=== PATIENT | female | born 1980 | race Caucasian/White ===

== ENCOUNTER 2017-06-16 10:10 | Emergency (ER) | payer MEDICAID ==
[~2017-06-16] VITALS: Ht 157.5 cm; Wt 89.6 kg
[2017-06-16 10:16] VITALS: BP 135/90
== END 2017-06-16 11:14 | disposition home or self-care (01) ==
LOC: ED 11:00
DX: J20.9 Acute bronchitis, unspecified (principal); J00 Acute nasopharyngitis [common cold]; J02.9 Acute pharyngitis, unspecified
CPT/HCPCS: 93005; 99283

== ENCOUNTER 2017-08-16 07:29 | Emergency (ER) | payer MEDICAID ==
[~2017-08-16] VITALS: Ht 157.5 cm; Wt 84.0 kg
[2017-08-16 08:12] VITALS: BP 112/72
== END 2017-08-16 08:14 | disposition home or self-care (01) ==
LOC: ED 08:00
DX: S06.0X9A Concussion with loss of consciousness of unspecified duration, initial encounter (principal); F41.9 Anxiety disorder, unspecified; W01.0XXA Fall on same level from slipping, tripping and stumbling without subsequent striking against object, initial encounter; Y93.89 Activity, other specified; Y99.8 Other external cause status; Y92.89 Other specified places as the place of occurrence of the external cause
CPT/HCPCS: 99283

== ENCOUNTER 2017-08-27 14:04 | Emergency (ER) | payer MEDICAID ==
[~2017-08-27] VITALS: Ht 157.5 cm; Wt 82.2 kg
[2017-08-27 15:45] LABS: MICROSCOPIC INDICATED
[2017-08-27 15:46] LABS: CULTURE INDICATED? YES
[2017-08-27 16:32] VITALS: BP 108/78
== END 2017-08-27 16:38 | disposition home or self-care (01) ==
LOC: ED 15:41
DX: N39.0 Urinary tract infection, site not specified (principal)
CPT/HCPCS: 81001; 81025; 87086; 99284

== ENCOUNTER 2017-11-12 08:49 | Emergency (ER) | payer SELFPAY ==
[~2017-11-12] VITALS: Ht 157.5 cm; Wt 76.3 kg
[2017-11-12 08:56] VITALS: BP 110/72
[2017-11-12 10:05] LABS: BASOPHILS # (AUTO) 0.07 x10^3/uL (0-0.1); BASOPHILS % (AUTO) 1 % (0-1); EOSINOPHILS # (AUTO) 0.07 x10^3/uL (0-0.4); EOSINOPHILS % (AUTO) 1 % (1-7); LYMPHOCYTES # (AUTO) 2.03 x10^3/uL (1-3.4); LYMPHOCYTES % (AUTO) 30 % (22-44); MD NO; MEAN CORPUSCULAR HEMOGLOBIN 32.4 pg (27.0-34.8); MEAN CORPUSCULAR HGB CONC 33.4 g/dL (32.4-35.8); MEAN PLATELET VOLUME 8.8 fL (7.4-10.4); MONOCYTES % (AUTO) 7 % (2-9); NEUTROPHILS # (AUTO) 4.22 x10^3/uL (1.8-6.8); NEUTROPHILS % (AUTO) 61 % (42-75); PLATELET COUNT 279 x10^3/uL (130-400); RED BLOOD COUNT 4.11 x10^6/uL (3.82-5.3); RED CELL DISTRIBUTION WIDTH 14.7 % (9.6-15.2)
[2017-11-12 10:17] LABS: ALANINE AMINOTRANSFERASE 32 U/L (12-78); ALBUMIN 3.1 g/dL (3.4-5.0); ANION GAP 7 mmol/L (5-15); CALCIUM 8.5 mg/dL (8.5-10.1); CHLORIDE 110 mmol/L (98-107); CREATININE 1.02 mg/dL (0.55-1.02)
[2017-11-12 10:19] LABS: ALKALINE PHOSPHATASE 47 U/L (45-117); BILIRUBIN,TOTAL 0.4 mg/dL (0.2-1.0); TOTAL PROTEIN 6.6 g/dL (6.4-8.2)
[2017-11-12 11:05] LABS: CULTURE INDICATED? YES; MICROSCOPIC INDICATED
[2017-11-12 11:19] LABS: HCG UR SG 1.025 (1.003-1.030)
== END 2017-11-12 12:35 | disposition home or self-care (01) ==
LOC: ED 09:01
DX: M79.672 Pain in left foot (principal); M79.671 Pain in right foot; H81.10 Benign paroxysmal vertigo, unspecified ear; N39.0 Urinary tract infection, site not specified; R53.1 Weakness
CPT/HCPCS: 36415; 80053; 81001; 81025; 85025; 87086; 93005; 99285

== ENCOUNTER 2017-11-13 07:39 | Emergency (ER) | payer SELFPAY ==
[~2017-11-13] VITALS: Ht 157.5 cm; Wt 85.4 kg
[2017-11-13 07:45] VITALS: BP 105/63
[2017-11-13 08:19] LABS: BASOPHILS # (AUTO) 0.07 x10^3/uL (0-0.1); BASOPHILS % (AUTO) 1 % (0-1); EOSINOPHILS # (AUTO) 0.09 x10^3/uL (0-0.4); EOSINOPHILS % (AUTO) 1 % (1-7); LYMPHOCYTES # (AUTO) 2.11 x10^3/uL (1-3.4); LYMPHOCYTES % (AUTO) 30 % (22-44); MD NO; MEAN CORPUSCULAR HEMOGLOBIN 32.4 pg (27.0-34.8); MEAN CORPUSCULAR HGB CONC 33.1 g/dL (32.4-35.8); MEAN CORPUSCULAR VOLUME 97.9 fL (80-100); MEAN PLATELET VOLUME 8.8 fL (7.4-10.4); MONOCYTES # (AUTO) 0.54 x10^3/uL (0.2-0.8); MONOCYTES % (AUTO) 8 % (2-9); NEUTROPHILS # (AUTO) 4.33 x10^3/uL (1.8-6.8); NEUTROPHILS % (AUTO) 61 % (42-75); PLATELET COUNT 266 x10^3/uL (130-400); RED BLOOD COUNT 4.19 x10^6/uL (3.82-5.3); RED CELL DISTRIBUTION WIDTH 14.6 % (9.6-15.2)
[2017-11-13] MEDS ORDERED: CEFTRIAXONE 1,000 MG IM ONE (08:30)
[2017-11-13 08:32] LABS: ALBUMIN 3.3 g/dL (3.4-5.0); ANION GAP 8 mmol/L (5-15); CALCIUM 8.6 mg/dL (8.5-10.1); CHLORIDE 111 mmol/L (98-107); CREATININE 1.11 mg/dL (0.55-1.02)
[2017-11-13 08:35] LABS: INTERNATIONAL NORMALIZED RATIO 1.09 (0.93-1.1); PROTHROMBIN TIME 11.3 Seconds (9.6-11.5)
[2017-11-13] MEDS ORDERED: CEFTRIAXONE 1,000 MG ONE (08:45)
== END 2017-11-13 10:14 | disposition home or self-care (01) ==
LOC: ED 09:12
DX: N30.90 Cystitis, unspecified without hematuria (principal); F41.1 Generalized anxiety disorder; R53.1 Weakness; Z72.9 Problem related to lifestyle, unspecified; Z75.9 Unspecified problem related to medical facilities and other health care
CPT/HCPCS: 36415; 70450; 71045; 80048; 82040; 85025; 85610; 93005; 96372; 99285; J0696

== ENCOUNTER 2017-12-04 12:58 | Emergency (ER) | payer MEDICAID ==
[~2017-12-04] VITALS: Ht 157.5 cm; Wt 80.6 kg
[2017-12-04 13:03] VITALS: BP 120/66
[2017-12-04] MEDS ORDERED: DIAZEPAM 5 MG TABLET ONE (13:30)
[2017-12-04] MEDS ORDERED: DIAZEPAM 5 MG TABLET PO ONE (13:30)
[2017-12-04] MEDS ORDERED: HYDROcodone/APAP 5/325 TABLET ONE (13:30)
[2017-12-04] MEDS ORDERED: OXYcodone/APAP 5/325MG TABLET PO ONE (13:30)
[2017-12-04] MEDS ORDERED: HYDROcodone/APAP 5/325 TABLET PO ONE (14:00)
== END 2017-12-04 15:09 | disposition home or self-care (01) ==
LOC: ED 14:25
DX: M54.41 Lumbago with sciatica, right side (principal)
CPT/HCPCS: 93005; 99284; J7512

== ENCOUNTER 2017-12-16 06:33 | Emergency (ER) | payer MEDICAID ==
[~2017-12-16] VITALS: Ht 165.1 cm; Wt 80.0 kg
[2017-12-16 06:35] VITALS: BP 117/73
== END 2017-12-16 08:57 | disposition home or self-care (01) ==
LOC: ED 08:51
DX: S50.11XA Contusion of right forearm, initial encounter (principal); W01.198A Fall on same level from slipping, tripping and stumbling with subsequent striking against other object, initial encounter; Y93.89 Activity, other specified; Y92.098 Other place in other non-institutional residence as the place of occurrence of the external cause; Y99.8 Other external cause status
CPT/HCPCS: 99284

== ENCOUNTER 2017-12-30 06:34 | Emergency (ER) | payer MEDICAID ==
[~2017-12-30] VITALS: Ht 157.5 cm; Wt 81.7 kg
[2017-12-30 07:34] VITALS: BP 107/70
== END 2017-12-30 08:44 | disposition home or self-care (01) ==
LOC: ED 06:53
DX: J02.8 Acute pharyngitis due to other specified organisms (principal); B97.89 Other viral agents as the cause of diseases classified elsewhere; J06.9 Acute upper respiratory infection, unspecified
CPT/HCPCS: 71046; 87081; 87880; 93005; 99285

== ENCOUNTER 2018-02-24 20:04 | Emergency (ER) | payer MEDICAID ==
[~2018-02-24] VITALS: Ht 157.5 cm; Wt 79.7 kg
[2018-02-24 20:10] VITALS: BP 117/73
[2018-02-24] MEDS ORDERED: SODIUM CHLORIDE FLUSH 10ML SYR IVF ONE (21:00)
[2018-02-24 21:24] LABS: BASOPHILS # (AUTO) 0.12 x10^3/uL (0-0.1); BASOPHILS % (AUTO) 1 % (0-1); EOSINOPHILS # (AUTO) 0.15 x10^3/uL (0-0.4); EOSINOPHILS % (AUTO) 2 % (1-7); LYMPHOCYTES # (AUTO) 3.13 x10^3/uL (1-3.4); LYMPHOCYTES % (AUTO) 34 % (22-44); MD NO; MEAN CORPUSCULAR HEMOGLOBIN 32.9 pg (27.0-34.8); MEAN CORPUSCULAR HGB CONC 33.4 g/dL (32.4-35.8); MEAN CORPUSCULAR VOLUME 98.6 fL (80-100); MONOCYTES # (AUTO) 0.58 x10^3/uL (0.2-0.8); MONOCYTES % (AUTO) 6 % (2-9); NEUTROPHILS # (AUTO) 5.21 x10^3/uL (1.8-6.8); NEUTROPHILS % (AUTO) 57 % (42-75); PLATELET COUNT 303 x10^3/uL (130-400); RED BLOOD COUNT 4.23 x10^6/uL (3.82-5.3); RED CELL DISTRIBUTION WIDTH 14.1 % (9.6-15.2)
[2018-02-24 21:34] LABS: ALANINE AMINOTRANSFERASE 20 U/L (12-78); ALBUMIN 3.4 g/dL (3.4-5.0); ANION GAP 8 mmol/L (5-15); CALCIUM 8.5 mg/dL (8.5-10.1); CHLORIDE 108 mmol/L (98-107)
[2018-02-24 21:38] LABS: ALKALINE PHOSPHATASE 48 U/L (45-117); BILIRUBIN,TOTAL 0.2 mg/dL (0.2-1.0); TOTAL PROTEIN 7.3 g/dL (6.4-8.2); TROPONIN I < 0.015 ng/mL (0.000-0.045)
== END 2018-02-24 23:18 | disposition home or self-care (01) ==
LOC: ED 20:53
DX: B34.9 Viral infection, unspecified (principal); R05 Cough
CPT/HCPCS: 36415; 71046; 71275; 80053; 84484; 85025; 93005; 99285

== ENCOUNTER 2018-03-11 07:10 | Emergency (ER) | payer MEDICAID ==
[~2018-03-11] VITALS: Ht 157.5 cm; Wt 74.0 kg
[2018-03-11] MEDS ORDERED: IBUPROFEN 600 MG TABLET ONE (07:21)
[2018-03-11] MEDS ORDERED: ACETAMINOPHEN 500 MG TABLET ONE (07:21)
[2018-03-11] MEDS ORDERED: IBUPROFEN 600 MG TABLET PO ONE (07:30)
[2018-03-11] MEDS ORDERED: IBUPROFEN 200 MG TABLET PO ONE (07:30)
[2018-03-11] MEDS ORDERED: ACETAMINOPHEN 500 MG TABLET PO ONE (07:30)
[2018-03-11] MEDS ORDERED: HYDR25TA11 PO (07:41)
[2018-03-11 08:08] VITALS: BP 106/67
[2018-03-11] MEDS ORDERED: LORATADINE/PSE 5/120MG TAB.ER.12H PO ONE (08:30)
== END 2018-03-11 08:22 | disposition home or self-care (01) ==
LOC: ED 07:43
DX: B34.9 Viral infection, unspecified (principal)
CPT/HCPCS: 71046; 93005; 99284

== ENCOUNTER 2018-04-17 15:34 | Emergency (ER) | payer MEDICAID ==
[~2018-04-17] VITALS: Ht 157.5 cm; Wt 72.4 kg
[~2018-04-17 15:34] MED LIST: HYDR25TA11 PO
[2018-04-17 15:41] VITALS: BP 125/81
== END 2018-04-17 16:19 | disposition home or self-care (01) ==
LOC: ED 16:10
DX: K08.89 Other specified disorders of teeth and supporting structures (principal); F41.1 Generalized anxiety disorder
CPT/HCPCS: 99283

== ENCOUNTER 2018-06-26 19:58 | Emergency (ER) | payer MEDICAID ==
[~2018-06-26] VITALS: Ht 157.5 cm; Wt 70.3 kg
[2018-06-26 23:56] LABS: BASOPHILS % (AUTO) 1 % (0-1); EOSINOPHILS # (AUTO) 0.08 x10^3/uL (0-0.4); EOSINOPHILS % (AUTO) 1 % (1-7); LYMPHOCYTES # (AUTO) 1.79 x10^3/uL (1-3.4); LYMPHOCYTES % (AUTO) 23 % (22-44); MD NO; MEAN CORPUSCULAR HEMOGLOBIN 31.6 pg (27.0-34.8); MEAN CORPUSCULAR HGB CONC 32.9 g/dL (32.4-35.8); MEAN CORPUSCULAR VOLUME 95.9 fL (80-100); MEAN PLATELET VOLUME 8.6 fL (7.4-10.4); MONOCYTES # (AUTO) 0.69 x10^3/uL (0.2-0.8); MONOCYTES % (AUTO) 9 % (2-9); NEUTROPHILS # (AUTO) 5.17 x10^3/uL (1.8-6.8); NEUTROPHILS % (AUTO) 66 % (42-75); PLATELET COUNT 408 x10^3/uL (130-400); RED BLOOD COUNT 4.12 x10^6/uL (3.82-5.3); RED CELL DISTRIBUTION WIDTH 14.9 % (9.6-15.2)
[2018-06-27 00:01] LABS: ALBUMIN 3.4 g/dL (3.4-5.0); ANION GAP 3 mmol/L (5-15); CALCIUM 8.7 mg/dL (8.5-10.1); CHLORIDE 111 mmol/L (98-107)
--- NOTE | 2018-06-27 00:32 | NUR ---
pt called to room from lobby
--- NOTE | 2018-06-27 01:09 | NUR ---
DR SELLERS AT BED SIDE PT WAS ABLE TO ANSWER FROM [facility]
[2018-06-27] MEDS ORDERED: MECLIZINE CHEWABLE 25 MG TAB ONE (01:13)
[2018-06-27] MEDS ORDERED: ONDANSETRON ODT 4 MG ONE (01:13)
[2018-06-27] MEDS ORDERED: ONDANSETRON ODT 4 MG PO ONE (01:30)
[2018-06-27] MEDS ORDERED: MECLIZINE CHEWABLE 25 MG TAB PO ONE (01:30)
--- NOTE | 2018-06-27 02:35 | NUR ---
given taxi sandeep with dc instrucftion pt and mother understood
[2018-06-27 02:36] VITALS: BP 110/69
== END 2018-06-27 02:38 | disposition home or self-care (01) ==
LOC: ED 23:59
DX: R42 Dizziness and giddiness (principal); F41.1 Generalized anxiety disorder; Z72.9 Problem related to lifestyle, unspecified
CPT/HCPCS: 36415; 80048; 82040; 85025; 99283; Q0162

== ENCOUNTER 2018-07-08 15:09 | Emergency (ER) | payer MEDICAID ==
[~2018-07-08] VITALS: Ht 157.5 cm; Wt 70.7 kg
[2018-07-08 16:01] VITALS: BP 133/71
--- NOTE | 2018-07-08 17:01 | NUR ---
Patient/Caregiver given discharge instructions and they have confirmed that they understand the instructions. Patient ambulatory with steady gait.
== END 2018-07-08 17:02 | disposition home or self-care (01) ==
LOC: ED 16:38
DX: M72.2 Plantar fascial fibromatosis (principal); W19.XXXA Unspecified fall, initial encounter; Y93.89 Activity, other specified; Y92.410 Unspecified street and highway as the place of occurrence of the external cause; Y99.8 Other external cause status
CPT/HCPCS: 99283

== ENCOUNTER 2018-07-09 10:51 | Emergency (ER) | payer MEDICAID ==
[~2018-07-09] VITALS: Ht 157.5 cm; Wt 69.5 kg
[2018-07-09 10:54] VITALS: BP 106/70
[2018-07-09] MEDS ORDERED: ONDANSETRON ODT 4 MG ONE (11:19)
[2018-07-09] MEDS ORDERED: MAALOX/HYOSCYAMINE/LIDOCAINE 45 ML BTL ONE (11:19)
--- NOTE | 2018-07-09 11:27 | NUR ---
PT TO ED AFTER VOMITING 1 TIME THIS MORNING AT 02:30. PT STATES "VERY LITTE" NAUSEA NOW. NO OTHER SYMPTOMS. CONNECTED TO MONITORS. VSS. CALL LIGHT WITHIN REACH. AWAITING EDMD ASSESSMENT.
[2018-07-09] MEDS ORDERED: ONDANSETRON ODT 4 MG PO ONE (11:30)
[2018-07-09] MEDS ORDERED: MAALOX/HYOSCYAMINE/LIDOCAINE 45 ML BTL PO ONE (11:30)
--- NOTE | 2018-07-09 11:30 | NUR ---
PT MEDICATED PER MAR.
== END 2018-07-09 12:11 | disposition home or self-care (01) ==
LOC: ED 11:42
DX: R11.2 Nausea with vomiting, unspecified (principal); R10.13 Epigastric pain; F41.1 Generalized anxiety disorder
CPT/HCPCS: 99283; Q0162

== ENCOUNTER 2018-07-16 11:00 | Emergency (ER) | payer MEDICAID ==
[~2018-07-16] VITALS: Ht 157.5 cm; Wt 72.0 kg
[2018-07-16 11:04] VITALS: BP 106/69
--- NOTE | 2018-07-16 11:15 | NUR ---
" HAVING TROUBLE REMEMBERING THINGS. HIT MY HEAD ON B[place] 1 MONTH AGO." HOMELESS
[2018-07-16] MEDS ORDERED: ACETAMINOPHEN 500 MG TABLET PO ONE (12:00)
--- NOTE | 2018-07-16 12:00 | NUR ---
PATIENT CONTINUED TO REPORT MEMORY LOSS. NO NEURO DEFICITS NOTED. GIVEN WATER/ADDITIONAL BLANKET. PROVIDER TO BEDSIDE TO EXPLAIN PROBABLE DISPO SHORTLY. PATIENT AGREEABLE
--- NOTE | 2018-07-16 13:15 | NUR ---
PATIENT DISCHARGED AT 1315 AFTER REVIEW OF DISCHARGE PAPERWORK.
[2018-07-16] MEDS ORDERED: ACETAMINOPHEN 500 MG TABLET ONE (13:16)
== END 2018-07-16 14:18 ==
LOC: ED 13:07
DX: R51 Headache (principal); F41.1 Generalized anxiety disorder; Z72.9 Problem related to lifestyle, unspecified
CPT/HCPCS: 70450; 99284

== ENCOUNTER 2018-09-09 16:46 | Emergency (ER) | payer MEDICAID ==
[~2018-09-09] VITALS: Ht 157.5 cm; Wt 73.2 kg
[2018-09-09 16:57] VITALS: BP 133/77
[2018-09-09 17:56] LABS: BASOPHILS # (AUTO) 0.12 x10^3/uL (0-0.1); BASOPHILS % (AUTO) 1 % (0-1); EOSINOPHILS # (AUTO) 0.32 x10^3/uL (0-0.4); EOSINOPHILS % (AUTO) 3 % (1-7); LYMPHOCYTES # (AUTO) 1.97 x10^3/uL (1-3.4); LYMPHOCYTES % (AUTO) 21 % (22-44); MD NO; MEAN CORPUSCULAR HEMOGLOBIN 31.8 pg (27.0-34.8); MEAN CORPUSCULAR HGB CONC 32.5 g/dL (32.4-35.8); MEAN CORPUSCULAR VOLUME 97.9 fL (80-100); MEAN PLATELET VOLUME 8.5 fL (7.4-10.4); MONOCYTES # (AUTO) 0.81 x10^3/uL (0.2-0.8); MONOCYTES % (AUTO) 9 % (2-9); NEUTROPHILS # (AUTO) 6.37 x10^3/uL (1.8-6.8); NEUTROPHILS % (AUTO) 66 % (42-75); PLATELET COUNT 362 x10^3/uL (130-400); RED BLOOD COUNT 3.88 x10^6/uL (3.82-5.3); RED CELL DISTRIBUTION WIDTH 15.1 % (9.6-15.2)
--- NOTE | 2018-09-09 18:46 | NUR ---
PATIENT BROUGHT BACK TO ROOM RME 07, ASSUMED CARE OF PATIENT AT THIS TIME.
--- NOTE | 2018-09-09 18:49 | NUR ---
PATIENT PRESENTS TO ED TODAY FOR LOWER ABD PAIN STARTING YESTERDAY WITH VAGINAL BLEEDING THIS AM, A0, LMP-07/09/18. AWAITING MD ORDERS, CALL LIGHT WITHIN REACH.
--- NOTE | 2018-09-09 19:09 | NUR ---
URINE CANCELLED, PATIENT TO BE DC'D.
--- NOTE | 2018-09-09 19:36 | NUR ---
Patient/Caregiver given discharge instructions and they have confirmed that they understand the instructions. Patient ambulatory with steady gait.
== END 2018-09-09 19:38 | disposition home or self-care (01) ==
LOC: ED 18:46
DX: N91.2 Amenorrhea, unspecified (principal)
CPT/HCPCS: 36415; 76830; 84703; 85025; 99284

== ENCOUNTER 2018-09-12 13:45 | Emergency (ER) | payer MEDICAID ==
[~2018-09-12] VITALS: Ht 157.5 cm; Wt 71.4 kg
[2018-09-12 13:49] VITALS: BP 113/66
== END 2018-09-12 14:59 | disposition home or self-care (01) ==
LOC: ED 14:55
DX: S90.822A Blister (nonthermal), left foot, initial encounter (principal); S90.821A Blister (nonthermal), right foot, initial encounter; G89.29 Other chronic pain; X58.XXXA Exposure to other specified factors, initial encounter; Y93.89 Activity, other specified; Y92.89 Other specified places as the place of occurrence of the external cause; Y99.8 Other external cause status
CPT/HCPCS: 99281

== ENCOUNTER 2018-10-01 16:10 | Emergency (ER) | payer MEDICAID ==
[~2018-10-01] VITALS: Ht 162.6 cm; Wt 64.0 kg
[2018-10-01 16:21] VITALS: BP 106/73
[2018-10-01] MEDS ORDERED: DEXAMETHASONE 4 MG/ML, 5ML ONE (16:50)
[2018-10-01] MEDS ORDERED: BICILLIN-LA 1,200,000 UNITS/2 ML IM ONE (17:00)
[2018-10-01] MEDS ORDERED: DEXAMETHASONE 4 MG/ML, 1ML PO ONE (17:00)
--- NOTE | 2018-10-01 17:57 | NUR ---
Patient/Caregiver given discharge instructions and they have confirmed that they understand the instructions. Patient ambulatory with steady gait.
== END 2018-10-01 17:59 | disposition home or self-care (01) ==
LOC: ED 16:38
DX: J02.0 Streptococcal pharyngitis (principal); Z72.89 Other problems related to lifestyle
CPT/HCPCS: 87081; 87880; 96372; 99283; J0561; J1100

== ENCOUNTER 2018-10-05 16:43 | Emergency (ER) | payer MEDICAID ==
[~2018-10-05] VITALS: Ht 157.5 cm; Wt 68.7 kg
[2018-10-05 16:48] VITALS: BP 90/61
[2018-10-05] MEDS ORDERED: IBUPROFEN 200 MG TABLET ONE (17:43)
[2018-10-05] MEDS ORDERED: IBUPROFEN 200 MG TABLET PO ONE (18:00)
--- NOTE | 2018-10-05 19:53 | NUR ---
PT DISCHARGED WITH TAXI VOUCHER TO [facility].
== END 2018-10-05 19:54 | disposition home or self-care (01) ==
LOC: ED 18:21
DX: S39.012A Strain of muscle, fascia and tendon of lower back, initial encounter (principal); Z72.9 Problem related to lifestyle, unspecified; G89.29 Other chronic pain; X58.XXXA Exposure to other specified factors, initial encounter; Y93.89 Activity, other specified; Y92.89 Other specified places as the place of occurrence of the external cause; Y99.8 Other external cause status
CPT/HCPCS: 99283

== ENCOUNTER 2018-10-11 15:17 | Emergency (ER) | payer MEDICAID ==
[~2018-10-11] VITALS: Ht 157.5 cm; Wt 84.5 kg
[~2018-10-11 15:17] MED LIST changes: +HYDR-826 PO; -HYDR25TA11 PO
[2018-10-11 15:28] VITALS: BP 115/77
--- NOTE | 2018-10-11 15:49 | NUR ---
PT HERE FOR POSSIBLE BED BUGS, NONE VISUALIZED ON PT. PT APPEARS TO [facility]. VSS
--- NOTE | 2018-10-11 15:59 | NUR ---
Patient/Caregiver given discharge instructions and they have confirmed that they understand the instructions. Patient ambulatory with steady gait.
== END 2018-10-11 16:13 | disposition home or self-care (01) ==
LOC: ED 16:07
DX: B86 Scabies (principal)
CPT/HCPCS: 99282; 99283